=== PATIENT | male | born 1975 | race Caucasian/White ===

== ENCOUNTER 2016-10-01 12:32 | Inpatient (IN) | payer SELFPAY ==
--- NOTE | 2016-10-01 13:43 | EDPRACDOC ---
<Aj Soto - Last Filed: 10/01/16 18:09> - General Information Information Source: Patient Mode Of Arrival: Ambulance - History of Present Illness Onset: TUESDAY Pain Location: Reports: Epigastric Pain Context: Reports: Spontaneous Pain Severity: Moderate Pain Quality: Reports: Cramping Pain Radiation: Reports: No Radiation Adult Abdominal History: Denies: Abdominal Surgery Modifying Factors: improves with: Nothing Associated Signs & Symptoms: Reports: Nausea, Vomiting, Diarrhea, Melena Oral Intake: Decreased Urinary Output: Decreased <Jamel Delgado - Last Filed: 10/01/16 19:05> - General Information Chief Complaint: Abdominal Pain Stated Complaint: ABD PAIN-N/V Home Medications: Home Medications No Home Medications 07/06/15 Allergies/Adverse Reactions: Allergies Allergy/AdvReac Type Severity Reaction Status Date / Time No Known Allergies Allergy Verified 10/01/16 12:47 - History of Present Illness HPI: PATIENT HAS A HX OF HEAVY ETOH USE 5 YEARS AGO. (Aj Soto) C/o constant epigastric pain and N/V x 1 with black tarry diarrhea since tuesday. Pt gets weak, dizzy when standing up, appears pale. has not been eating or drinking much. Denies fever, cp, sob, change in urine. Med hx = none. Surgical hx = none. (Jamel Delgado) ED Past Medical History - History Reviewed Yes Nurses notes reviewed and agree except as marked - Patient Medical History Musculoskeletal History: Reports: Osteoarthritis Psychological History: Denies: Depression Additional Past Medical History: HNP Lower Back, CHRONIC PAIN, SUBSTANCE ABUSE Surgical History: Reports: Other (back) - Social Medical History Smoking Status: Heavy tobacco smoker (5 or more cigarettes/day or daily pipe/ cigar) <Jamel Delgado - Last Filed: 10/01/16 19:05> EDM Review of Systems - Review of Systems ROS Negative Except as Marked: Yes All systems reviewed and were negative except as marked Gastrointestinal: Diarrhea, Melena, Nausea, Pain, Vomiting Neurological: Dizziness (when standing), Weakness (when standing) <Jamel Delgado - Last Filed: 10/01/16 19:05> - GI Rectal Exam: Heme positive stool Stool: Tarry <Aj Soto - Last Filed: 10/01/16 18:09> - Physical Exam Constitutional: Alert Oriented to: Time, Person, Place - HEENT Head: Normal Eye Exam: negative: Conjunctival Injection, Scleral Icterus Oropharynx: negative: Drooling TMJ: Normal Nose: No Symptoms Reported Neck: Normal - Respiratory/Cardiovascular Respiratory: Normal - CTA Cardiovascular: Normal - GI Tenderness: Diffuse, Epigastric (more tender than rest of abdo) Andrew's Sign: Negative - Musculoskeletal Back: Normal Extremities: Normal - Integumentary Skin: Normal - Neurologic Mood Description: Normal Thought: Coherent Perception: Normal <Jamel Delgado - Last Filed: 10/01/16 19:05> - Physical Exam Last recorded Vital Signs: Last Vital Signs Temp 98.3 F 10/01/16 12:47 Pulse 90 10/01/16 18:26 Resp 20 10/01/16 18:26 BP 103/58 L 10/01/16 18:26 Pulse Ox 98 10/01/16 18:26 Oxygen Pulse Oxygen Saturation 98 O2 Device Room Air Oxygen Flow Rate Fraction of Inspired Oxygen ( FIO2) (Aj Soto) (Jamel Delgado) - Results 10/01/16 14:07 10/01/16 14:07 - EKG EKG #1 EKG Time: 15:53 -: Yes EKG interpreted by me Rate: bpm: 99 [place]: RAD Block: None Hypertrophy: None ST: Normal <Aj Soto - Last Filed: 10/01/16 18:09> - Results 10/01/16 14:07 10/01/16 14:07 - EKG EKG #1 Comparison: 02/09/12 (Sinus arrhythmia otherwise similar) - Diagnostic Imaging Chest Image interpreted by: Radiologist Abdomen Image interpreted by: Radiologist <Jamel Delgado - Last Filed: 10/01/16 19:05> - Results WBC 8.0 xk/uL (3.8-10.8) 10/01/16 14:07 RBC 3.10 xM/uL (4.70-6.10) L 10/01/16 14:07 Hgb 9.8 g/dL (14.0-18.0) L 10/01/16 14:07 Hct 28.4 % (42-52) L 10/01/16 14:07 MCV 92 fL (80-94) 10/01/16 14:07 MCH 31.7 pg (27-32) 10/01/16 14:07 MCHC 34.6 g/dl (33-36) 10/01/16 14:07 RDW 12.7 % (11.5-14.5) 10/01/16 14:07 Plt Count 184 xk/uL (130-400) 10/01/16 14:07 MPV 8.0 fL (7.4-10.4) 10/01/16 14:07 Neut % (Auto) 62.9 % (45-76) 10/01/16 14:07 Lymph % (Auto) 28.2 % (17-44) 10/01/16 14:07 Stearns % (Auto) 8.2 % (3-10) 10/01/16 14:07 Eos % (Auto) 0.3 % (0-5) 10/01/16 14:07 Baso % (Auto) 0.4 % (0-2) 10/01/16 14:07 Absolute Neuts (auto) 4.96 xk/uL (1.7-8.2) 10/01/16 14:07 Absolute Lymphs (auto) 2.24 xk/uL (0.65-4.75) 10/01/16 14:07 PT 12.0 SEC (9.2-11.2) H 10/01/16 14:07 INR 1.2 10/01/16 14:07 APTT 25.5 SEC (22-35) 10/01/16 14:07 Sodium 135 mEq/L (137-146) L 10/01/16 14:07 Potassium 4.5 mEq/L (3.5-5.1) 10/01/16 14:07 Chloride 105 mEq/L (98-107) 10/01/16 14:07 Carbon Dioxide 25 mMOL/L (22-33) 10/01/16 14:07 Anion Gap 10 mEq/L (8-16) 10/01/16 14:07 BUN 28 MG/DL (9-20) H 10/01/16 14:07 Creatinine 0.70 MG/DL (0.66-1.25) 10/01/16 14:07 Estimated GFR (MDRD) > 60 mL/min (>=60) 10/01/16 14:07 Glucose 103 MG/DL (70-99) H 10/01/16 14:07 Calculated Osmolality 266 MOs/Kg (270-290) L 10/01/16 14:07 Calcium 7.8 MG/DL (8.4-10.2) L 10/01/16 14:07 Corrected Calcium 8.9 MG/DL (8.4-10.2) 10/01/16 14:07 Total Bilirubin 0.6 MG/DL (0.2-1.3) 10/01/16 14:07 AST 106 IU/L (17-59) H 10/01/16 14:07 ALT 214 IU/L (21-72) H 10/01/16 14:07 Alkaline Phosphatase 46 IU/L (38-126) 10/01/16 14:07 Troponin I < 0.01 ng/mL (<.04) 10/01/16 17:30 Total Protein 5.5 G/DL (6.3-8.2) L 10/01/16 14:07 Albumin 2.9 G/DL (3.5-5.0) L 10/01/16 14:07 Lipase 39 U/L (23-300) 10/01/16 14:07 Urine Color Yellow 10/01/16 16:40 Urine Clarity Clear 10/01/16 16:40 Urine pH 6.0 (5.0-8.0) 10/01/16 16:40 Ur Specific [place] 1.015 (1.003-1.035) 10/01/16 16:40 Urine Protein Neg (NEG/TRACE) 10/01/16 16:40 Urine Glucose (UA) Neg (NEGATIVE) 10/01/16 16:40 Urine Ketones 1+ (NEGATIVE) H 10/01/16 16:40 Urine Occult Blood Neg (NEG/TRACE) 10/01/16 16:40 Urine Nitrite Neg (NEGATIVE) 10/01/16 16:40 Urine Bilirubin Neg (NEGATIVE) 10/01/16 16:40 Urine Urobilinogen <2.0 MG/DL (0-1) 10/01/16 16:40 Ur Leukocyte Esterase Neg (NEGATIVE) 10/01/16 16:40 Urine RBC 0-2 (0-2) 10/01/16 16:40 Urine WBC 0-2 (0-2) 10/01/16 16:40 Urine Bacteria Few (NEG/FEW) 10/01/16 16:40 Urine Mucus Occ (NEG/OCC) 10/01/16 16:40 Blood Type A POSITIVE 10/01/16 14:07 Antibody Screen Negative 10/01/16 14:07 Lab Results 10/01/16 10/01/16 10/01/16 17:30 16:40 14:07 WBC RBC Hgb Hct MCV MCH MCHC RDW Plt Count MPV Neut % (Auto) Lymph % (Auto) Stearns % (Auto) Eos % (Auto) Baso % (Auto) Absolute Neuts (auto) Absolute Lymphs (auto) PT 12.0 H INR 1.2 APTT 25.5 Sodium Potassium Chloride Carbon Dioxide Anion Gap BUN Creatinine Estimated GFR (MDRD) Glucose Calculated Osmolality Calcium Corrected Calcium Total Bilirubin AST ALT Alkaline Phosphatase Troponin I < 0.01 Total Protein Albumin Lipase Urine Color Yellow Urine Clarity Clear Urine pH 6.0 Ur Specific [place] 1.015 Urine Protein Neg Urine Glucose (UA) Neg Urine Ketones 1+ H Urine Occult Blood Neg Urine Nitrite Neg Urine Bilirubin Neg Urine Urobilinogen <2.0 Ur Leukocyte Esterase Neg Urine RBC 0-2 Urine WBC 0-2 Urine Bacteria Few Urine Mucus Occ Blood Type Antibody Screen 10/01/16 10/01/16 10/01/16 14:07 14:07 14:07 WBC RBC Hgb Hct MCV MCH MCHC RDW Plt Count MPV Neut % (Auto) Lymph % (Auto) Stearns % (Auto) Eos % (Auto) Baso % (Auto) Absolute Neuts (auto) Absolute Lymphs (auto) PT INR APTT Sodium Potassium Chloride Carbon Dioxide Anion Gap BUN Creatinine Estimated GFR (MDRD) Glucose Calculated Osmolality Calcium Corrected Calcium Total Bilirubin AST ALT Alkaline Phosphatase Troponin I < 0.01 Total Protein Albumin Lipase Cancelled Urine Color Urine Clarity Urine pH Ur Specific [place] Urine Protein Urine Glucose (UA) Urine Ketones Urine Occult Blood Urine Nitrite Urine Bilirubin Urine Urobilinogen Ur Leukocyte Esterase Urine RBC Urine WBC Urine Bacteria Urine Mucus Blood Type A POSITIVE Antibody Screen Negative 10/01/16 10/01/16 14:07 14:07 WBC 8.0 RBC 3.10 L Hgb 9.8 L Hct 28.4 L MCV 92 MCH 31.7 MCHC 34.6 RDW 12.7 Plt Count 184 MPV 8.0 Neut % (Auto) 62.9 Lymph % (Auto) 28.2 Stearns % (Auto) 8.2 Eos % (Auto) 0.3 Baso % (Auto) 0.4 Absolute Neuts (auto) 4.96 Absolute Lymphs (auto) 2.24 PT INR APTT Sodium 135 L Potassium 4.5 Chloride 105 Carbon Dioxide 25 Anion Gap 10 BUN 28 H Creatinine 0.70 Estimated GFR (MDRD) > 60 Glucose 103 H Calculated Osmolality 266 L Calcium 7.8 L Corrected Calcium 8.9 Total Bilirubin 0.6 AST 106 H ALT 214 H Alkaline Phosphatase 46 Troponin I Total Protein 5.5 L Albumin 2.9 L Lipase 39 Urine Color Urine Clarity Urine pH Ur Specific [place] Urine Protein Urine Glucose (UA) Urine Ketones Urine Occult Blood Urine Nitrite Urine Bilirubin Urine Urobilinogen Ur Leukocyte Esterase Urine RBC Urine WBC Urine Bacteria Urine Mucus Blood Type Antibody Screen (Soto,Aj) - Diagnostic Imaging Chest 10/01/16 16:01 EXAM: PORTABLE CHEST 1 VIEW COMPARISON: November 02, 2006. FINDINGS: There is no edema or consolidation. The heart size and pulmonary vascularity are normal. No adenopathy. No bone lesions. IMPRESSION: No edema or consolidation. Electronically Signed By: Gary Das III, M.D. On: 10/01/2016 14:37 (Jamel Delgado) Abdomen 10/01/16 17:14 EXAM: CT ABDOMEN AND PELVIS WITH CONTRAST TECHNIQUE: Multidetector CT imaging of the abdomen and pelvis was performed using the standard protocol following bolus administration of intravenous contrast. Sagittal and coronal MPR images reconstructed from axial data set. CONTRAST: Dilute oral contrast. 100 cc Isovue 370 IV. COMPARISON: 05/08/2014 FINDINGS: Lung bases clear. Distended gallbladder with 2 tiny dependent calculi. Liver, spleen, pancreas, kidneys, and adrenal glands normal. Single borderline enlarged mesenteric lymph node RIGHT upper pelvis 10 mm short axis image 56. Normal appendix located in lateral mid RIGHT pelvis image 65. Ascending colon is incompletely distended making it impossible to exclude wall thickening. Minimally prominent pylorus without surrounding infiltrative changes. Stomach and bowel loops otherwise grossly unremarkable. No definite mass, additional adenopathy, free air, free fluid, hernia, or inflammatory process. Degenerative disc disease changes L5-S1. IMPRESSION: Cannot exclude wall thickening at the ascending colon though this could be an artifact from underdistention. Cholelithiasis. Single borderline enlarged mesenteric lymph node 10 mm short axis RIGHT mid abdomen. Minimally prominent pylorus, nonspecific, without surrounding infiltrative state changes to suggest ulcer disease. Electronically Signed By: Vaibhav Crawley M.D. On: 10/01/2016 16:56 (Jamel Delgado) - Departure Yes I personally saw and evaluated the patient. Disposition: Admit IP To This Hospital Education/Counseling Given To: Patient Education/Counseling Given Regarding: Diagnosis, Treatment, Prognosis Decision to Admit Time: 18:02 Decision to admit date: 10/01/16 Decision to admit: from ED - Physician Consulted GI Time Called: 18:02 Provider Called: Ignacio Mulligan Time Base Wad Operator Adjuster Returned Call: 18:02 (NEEDS ADMISSION) Hospitalist Time Called: 18:03 Provider Called: Marcus Watson Time Base Wad Operator Adjuster Returned Call: 18:03 <Aj Soto - Last Filed: 10/01/16 18:09> <Jamel Delgado - Last Filed: 10/01/16 19:05> - Departure Condition: Fair Final Diagnosis: Acute upper GI bleed, Acute blood loss anemia, Weakness, Alcoholic liver disease Referrals: None,No Provider [Primary Care Provider] - One Week Prescriptions: No Action No Home Medications 0 NA DIR #0 info
[2016-10-01] MEDS ORDERED: ONDANSETRON HCL 4 MG/2 ML VIAL IV ONE ×2 (13:56→16:12)
[2016-10-01] MEDS ORDERED: MORPHINE 4 MG/ML INJECTION IV ONE ×2 (13:56→16:12)
[2016-10-01] MEDS ORDERED: NS 1,000 ML IV ONE (13:56)
[2016-10-01] MEDS ORDERED: DIATRIZOATE MEGLMINE/SODIUM 30 ML BOTTLE PO ONE (14:19)
[2016-10-01 14:20] LABS: AUTOMATED BASOPHIL 0.4 % (0-2); AUTOMATED EOSINOPHIL 0.3 % (0-5); AUTOMATED LYMPH 28.2 % (17-44); AUTOMATED MONOCYTE 8.2 % (3-10); AUTOMATED NEUTROPHIL 62.9 % (45-76)
[2016-10-01] MEDS ORDERED: PANTOPRAZOLE 40 MG VIAL IV ONE ×2 (14:22→18:09)
[2016-10-01 14:30] LABS: BLOOD UREA NITROGEN 28 MG/DL (9-20); CALC CORRECTED 8.9 MG/DL (8.4-10.2); CALCIUM 7.8 MG/DL (8.4-10.2); CALCULATED OSMOLALITY 266 MOs/Kg (270-290); CHLORIDE 105 mEq/L (98-107); GLUCOSE 103 MG/DL (70-99); SODIUM LEVEL 135 mEq/L (137-146); TOTAL PROTEIN 5.5 G/DL (6.3-8.2)
[2016-10-01 14:35] LABS: PARTIAL THROMB. TIME 25.5 SEC (22-35); PT-INR 1.2
--- NOTE | 2016-10-01 14:40 | DIRPT ---
CLINICAL DATA: Epigastric pain which nausea and vomiting; dizziness. EXAM: PORTABLE CHEST 1 VIEW COMPARISON: November 02, 2006. FINDINGS: There is no edema or consolidation. The heart size and pulmonary vascularity are normal. No adenopathy. No bone lesions. IMPRESSION: No edema or consolidation. Electronically Signed By: Gary Das III, M.D. On: 10/01/2016 14:37
[2016-10-01] MEDS ORDERED: Pharmacy Review for Metformin - IV Contrast Given SCH ×3 (15:00)
[2016-10-01 16:46] LABS: LEUKOCYTES/URINE NEG (NEGATIVE); NITRITE/URINE NEG (NEGATIVE); RBC/URINE 0-2 (0-2); URINE OCCULT BLOOD NEG (NEG/TRACE); WBC/URINE 0-2 (0-2)
--- NOTE | 2016-10-01 16:59 | DIRPT ---
CLINICAL DATA: Melena, black tarry stools, abdominal pain, nausea, vomiting and diarrhea for 3 days EXAM: CT ABDOMEN AND PELVIS WITH CONTRAST TECHNIQUE: Multidetector CT imaging of the abdomen and pelvis was performed using the standard protocol following bolus administration of intravenous contrast. Sagittal and coronal MPR images reconstructed from axial data set. CONTRAST: Dilute oral contrast. 100 cc Isovue 370 IV. COMPARISON: 05/08/2014 FINDINGS: Lung bases clear. Distended gallbladder with 2 tiny dependent calculi. Liver, spleen, pancreas, kidneys, and adrenal glands normal. Single borderline enlarged mesenteric lymph node RIGHT upper pelvis 10 mm short axis image 56. Normal appendix located in lateral mid RIGHT pelvis image 65. Ascending colon is incompletely distended making it impossible to exclude wall thickening. Minimally prominent pylorus without surrounding infiltrative changes. Stomach and bowel loops otherwise grossly unremarkable. No definite mass, additional adenopathy, free air, free fluid, hernia, or inflammatory process. Degenerative disc disease changes L5-S1. IMPRESSION: Cannot exclude wall thickening at the ascending colon though this could be an artifact from underdistention. Cholelithiasis. Single borderline enlarged mesenteric lymph node 10 mm short axis RIGHT mid abdomen. Minimally prominent pylorus, nonspecific, without surrounding infiltrative state changes to suggest ulcer disease. Electronically Signed By: Vaibhav Crawley M.D. On: 10/01/2016 16:56
[2016-10-01] MEDS ORDERED: PANTOPRAZOLE SODIUM 40 MG in NS 100 ML IV SCH (18:09)
[2016-10-01] MEDS ORDERED: NICOTINE 21 MG PATCH TOP ONE (18:14)
--- NOTE | 2016-10-01 18:34 | PCM.CONSGI ---
Consult Date: 10/01/16 Consult Requesting Physician: Marcus Watson Consult Reason: GI Bleed - History of Present Illness The patient is admitted today with GI bleeding. He indicates that for three days he has been passing black, tarry stools. In addition, he has had generalized abdominal pain that is present throughout the day and wakes him at night. The pain is steady, aching and persistent. There has been dizziness, weakness, and some nausea and vomiting. He may have vomited a slight amount of bright red blood, but it doesn't sound like he really looked at it. He has never had ulcers before but does uses NSAIDs on a regular basis, several times a week. Previously, he was a much heavier user of NSAIDs. He is a former heavy drinker, but had not had any alcohol in several years. This is confirmed by his fiancee. There is no history of bowel irregularities, heartburn, or dysphagia. There is no previous history of liver disorder. The patient report a 40 lb weight loss since April of 2016. His eating has been erratic but he indicates he has always eaten that way. - Past Medical History Cardiac History: Denies: Coronary Artery Disease, Hypertension Respiratory History: Reports: No Significant History Musculoskeletal History: Reports: Osteoarthritis Systemic History: Denies: Diabetes - Surgical History Past Surgical History: Reports: No Significant History - Allergies Allergies No Known Allergies Allergy (Verified 10/01/16 12:47) - Medications Home Medications No Home Medications 07/06/15 - Social History Smoking Status: Heavy tobacco smoker (5 or more cigarettes/day or daily pipe/ cigar) Social History: Reports: Alcohol Use - Review of Systems Constitutional: Fatigue, Loss of Appetite, Weakness, Weight loss. negative: Chills, Fever Eyes: No Symptoms Reported Ears: No Symptoms Reported Throat: No Symptoms Reported Nose: No Symptoms Reported Mouth: No Symptoms Reported Respiratory: negative: Cough, Shortness of Breath, Wheezing Cardiovascular: Syncope (Near-syncope). negative: Chest Pain, Edema, Palpitations Gastrointestinal: Nausea, Vomiting, Abdominal Pain, Melena. negative: Dysphasia , Heartburn Genitourinary: negative: Dysuria, Hematuria Neurological: negative: Headache, Seizure Musculoskeletal: Chronic low back pain, Arthritis Integumentary: negative: Rash, Ulcers Allergic/Immunologic: No Symptoms Reported Hematologic: negative: Anemia, Past Transfusions Endocrine: No Symptoms Reported - Exam Vital Signs: Temperature: 98.3 F (10/01/16 12:47) HR: 90 (10/01/16 18:26) RR: 20 (10/01/16 18:26) BP: 103/58 (10/01/16 18:26) Pulse Ox: 98 (10/01/16 18:26) General: Alert, Oriented x3, Cooperative, Moderate distress (due to abdominal pain) HEENT: PERRLA. negative: Icteric Sclera, Pallor Respiratory: Normal - CTA. negative: Rales, Rhonchi, Wheezes Cardiovascular: Regular rate, Normal S1, Normal S2, No murmurs Gastrointestinal: Soft, Bowel Sounds, Tender (mild, diffuse, without guarding or rebound). negative: Hepatosplenomegaly Extremities: Normal pulses. negative: Swelling, Edema Skin: Warm,Dry and Intact, No rashes Neurological: Normal speech, Strength at 5/5 X4 ext, Cranial nerves 3-12 NL Psych/Mental Status: Appropriate, Normal Affect, Cooperative - Labs Result Diagrams: 10/01/16 14:07 10/01/16 14:[address] SCAN Distended gallbladder with 2 tiny dependent calculi. Liver, spleen, pancreas, kidneys, and adrenal glands normal.. Ascending colon is incompletely distended making it impossible to exclude wall thickening. Laboratory Tests 10/01/16 10/01/16 10/01/16 14:07 14:07 14:07 WBC 8.0 Hgb 9.8 L MCV 92 Plt Count 184 PT 12.0 H INR 1.2 BUN 28 H Creatinine 0.70 Total Bilirubin 0.6 AST 106 H ALT 214 H Alkaline Phosphatase 46 - Assessment and Plan (1) Melena Acute K92.1 - MELENA Comment: Possibility includes acute gastritis with hemorrhage, acute peptic ulcer with hemorrhage, or Brigid Moura tear. Less likely is variceal hemorrhage or lower GI bleeding (i.e., diverticular). (2) Anemia, normocytic normochromic Acute D64.9 - ANEMIA, UNSPECIFIED Comment: Most likely is post-hemorrhagic but other factors need to be considered. (3) Weight loss Acute R63.4 - ABNORMAL WEIGHT LOSS Comment: This is significant without obvious etiology. In addition to the GI symptoms and the elevated LFTs. this type of weight loss would be common in a patient with significant alcohol use. (4) Elevated transaminase level Acute R74.0 - NONSPEC ELEV OF LEVELS OF TRANSAMNS & LACTIC ACID DEHYDRGNSE Comment: The elevations could be related to recent significant alcohol use. Viral hepatitis, especially B N/C, need to be checked for. The CT scan for the liver did not show any evidence of cirrhosis, although the low albumin is somewhat worrisome for the possibility that diagnosis. (5) Cholelithiases Acute K80.20 - CALCULUS OF GALLBLADDER W/O CHOLECYSTITIS W/O OBSTRUCTION C C C C C B Comment: It is possible that the gallstones are responsible for the abdominal pain and the bleeding is secondary, perhaps due to a Brigid Moura tear. If the EGD does not show a cause for the abdominal pain, a biliary scan may be appropriate. Recommendations: 1. Will perform upper GI endoscopy in the morning 2. Acute hepatitis profile Medical decision making: Moderate New problem with work-up Endoscopy without significant risk factors CPT: 45918
--- NOTE | 2016-10-01 19:14 | HISTPHYS ---
- Chief Complaint ABDOMINAL pain - History of Present Illness PRIMARY CARE PROVIDER: None HPI: The patient is a 41 yo man who presents with abdominal pain and vomiting. The patient reports being dizzy, then started back to work; dizzy starting Tuesday. Drinking jeni all day. Vomiting frequently starting Tuesday. Has been vomiting frequently. Tuesday started having black stool. Got up morning and he fell. Feels very weak all over. Slept in bed almost all the time. Constant abdominal pain. Onset: Duration: intermittent. Location: generalized but worst areas are centrally in epigastric and above the periumbilical region. Also on right side at mid abdomen. Radiation: none. Character: 8/10. Sharp. Alleviated by: Nothing. Exacerbated by : Standing. Associated Symptoms: Small amount of blood in vomiting. Mostly water eventually in vomit because he was not eating anything. Decreased PO intake; nothing to eat since Tuesday. Has had chronic constipation; has gone 2 weeks at a time without having a bowel movement. Currently has diarrhea and black stool. No history of recent bright red blood per rectum. Nausea and vomiting. Dizziness. Mild shortness of breath. No Fever, chills. Diaphoresis but was cold to touch, 2 days ago. Pale. Per report 40 lb weight loss since April 2016. Reports he drinks a lot of tea. He states he has a "Head hodge": frequent; room starts spinning; has had them before but getting worse. Treatments: none at home. PMH: GERD Hemorrhoids Chronic constipation Chronic back pain. Left shoulder pain. - Medical History GI/ History: Reports: Gastroesophageal Reflux (also chronic constipation, hemorrhoids.) Musculoskeletal History: Reports: Osteoarthritis (and chronic back pain) Psychological History: Reports: Alcoholism PMH: GERD Hemorrhoids Chronic constipation Chronic back pain. Left shoulder pain. Alcoholism in past, severe, but quit years ago. History of IV drug use, minimal. Quit. History of substance abuse including Opana, Percocet, and Meth. Stopped using. - Surgical History Reports: Other (Back surgery 2006) - Medictions/Allergies Allergies No Known Allergies Allergy (Verified 10/01/16 12:47) Current Medication List: Reviewed Home Medications No Home Medications 07/06/15 - Family History Reports: Hypertension (PGM), Diabetes (Uncle. PGM: borderline.), Respiratory Disorders (Brother), Other (Mother: medical history unknown. Father: hemorrhoids. GM and brother: ulcer). Denies: Stroke, Cardiac Disorders - Social History Smoking Status: Heavy tobacco smoker (5 or more cigarettes/day or daily pipe/ cigar) (Smokes 1 ppd currently. Prior: smoked 3-4 ppd. Started 12 yo.) Social History: Reports: Alcohol Use. Denies: Substance Use Disorder Previously drank daily starting at age 21yo. Up to 1 case of beer per day. Stopped approx 2010. No alcohol since then. Stopped all drugs over 1 year ago. Minimal amount of heroin, did use needles. Opoid pills = Opana, percocet. Methamphetamines. Was in intermediate and rehab and quit then. Relapsed but then intermediate again. No pills in over 2 years. - Review of Systems GENERAL: No Fever, chills. Diaphoresis but was cold to touch, 2 days ago. Positive for fatigue/malaise. HEENT: No ear pain or discharge. No nasal discharge or bleeding. No throat pain or swelling. No eye pain or eye redness. RESPIRATORY: No cough, wheezing. Mild shortness of breath. CARDIOVASCULAR: No chest pain or palpitations. GI: No abdominal pain, nausea, vomiting, diarrhea, constipation, or bloody stool. NEUROLOGICAL: No headache or focal weakness. INTEGUMENT: no rashes, itching, or lesions. LYMPHATIC SYSTEM: no lymph node swelling or pain. MUSCULOSKELETAL: Otherwise, no new pain or joint swelling. Left shoulder pain. GENITOURINARY: No dysuria or hematuria. Urine is dark. ENDOCRINE: No polyuria but has recent polydipsia. HEME: No chronic anemia or easy bruising. - Physical Exam Vital Signs: Initial Vitals Temperature 98.3 F 10/01/16 12:47 Pulse Rate 99 10/01/16 12:47 Respiratory Rate 20 10/01/16 12:47 Blood Pressure 116/62 10/01/16 12:47 Pulse Oxygen Saturation 95 10/01/16 12:47 Vital Signs - 24 hr 10/01/16 10/01/16 10/01/16 12:47 14:22 14:23 Temperature 98.3 F Pulse Rate 99 81 80 Respiratory 20 Rate Blood Pressure 116/62 117/58 L 117/59 L Pulse Oxygen 95 Saturation 10/01/16 10/01/16 10/01/16 14:24 15:52 16:51 Temperature Pulse Rate 80 96 99 Respiratory 20 20 Rate Blood Pressure 112/58 L 101/58 L 111/57 L Pulse Oxygen 98 97 Saturation 10/01/16 18:26 Temperature Pulse Rate 90 Respiratory 20 Rate Blood Pressure 103/58 L Pulse Oxygen 98 Saturation Weight: 83.9 kg Height: 6 feet 2 inches BMI: 23.8 - Other Exam Other Exam Findings: GENERAL: Ill-appearing, well nourished, in acute distress. HEENT: Normocephalic, atraumatic; pupils equal and round. Nares patent, without discharge or bleeding. No oropharyngeal lesions or erythema. Mucous membranes are dry. NECK: is supple, no masses, trachea midline. RESPIRATORY: Clear to auscultation bilaterally. Chest wall movements are symmetric. No use of accessory muscles to breathe. No wheezing, rales, rhonchi. Decreased breath sounds bilaterally. CARDIOVASCULAR: Normal S1, S2. No murmurs, rubs, or gallops. PMI non-displaced. Carotids: no carotid bruits. No bradycardia or tachycardia. DP pulses 1-2+ bilaterally. GI: soft, non-distended, normal active bowel sounds. No hepatosplenomegaly. Tenderness, mild, in epigastric area. INTEGUMENT: Clean, dry, and intact. No rashes. No lesions. MUSCULOSKELETAL: Moving all extremities. No cyanosis. No clubbing. Edema: none bilaterally. NEUROLOGICAL: Cranial nerves 2-12 grossly intact. Motor 5/5 throughout. Reflexes : 2+ bilaterally. Babinski: toes downgoing bilaterally. Intact Finger to nose. Sensory grossly intact to light touch. Intact rapid alternating movements bilaterally. No pronator drift. PSYCHIATRIC: Fully oriented. Normal and appropriate affect. LYMPHATIC: No cervical lymphadenopathy. No supraclavicular lymphadenopathy. - Lab Results Laboratory Tests 10/01/16 10/01/16 10/01/16 14:07 14:07 14:07 WBC 8.0 RBC 3.10 L Hgb 9.8 L Hct 28.4 L MCV 92 MCH 31.7 MCHC 34.6 RDW 12.7 Plt Count 184 MPV 8.0 Neut % (Auto) 62.9 Lymph % (Auto) 28.2 [place] % (Auto) 8.2 Eos % (Auto) 0.3 Baso % (Auto) 0.4 Absolute Neuts (auto) 4.96 Absolute Lymphs (auto) 2.24 PT INR APTT Sodium 135 L Potassium 4.5 Chloride 105 Carbon Dioxide 25 Anion Gap 10 BUN 28 H Creatinine 0.70 Estimated GFR (MDRD) > 60 Glucose 103 H Calculated Osmolality 266 L Calcium 7.8 L Corrected Calcium 8.9 Total Bilirubin 0.6 AST 106 H ALT 214 H Alkaline Phosphatase 46 Troponin I Total Protein 5.5 L Albumin 2.9 L Lipase 39 Urine Color Urine Clarity Urine pH Ur Specific [place] Urine Protein Urine Glucose (UA) Urine Ketones Urine Occult Blood Urine Nitrite Urine Bilirubin Urine Urobilinogen Ur Leukocyte Esterase Urine RBC Urine WBC Urine Bacteria Urine Mucus Blood Type A POSITIVE Antibody Screen Negative 10/01/16 10/01/16 10/01/16 14:07 14:07 14:07 WBC RBC Hgb Hct MCV MCH MCHC RDW Plt Count MPV Neut % (Auto) Lymph % (Auto) [place] % (Auto) Eos % (Auto) Baso % (Auto) Absolute Neuts (auto) Absolute Lymphs (auto) PT 12.0 H INR 1.2 APTT 25.5 Sodium Potassium Chloride Carbon Dioxide Anion Gap BUN Creatinine Estimated GFR (MDRD) Glucose Calculated Osmolality Calcium Corrected Calcium Total Bilirubin AST ALT Alkaline Phosphatase Troponin I < 0.01 Total Protein Albumin Lipase Cancelled Urine Color Urine Clarity Urine pH Ur Specific [place] Urine Protein Urine Glucose (UA) Urine Ketones Urine Occult Blood Urine Nitrite Urine Bilirubin Urine Urobilinogen Ur Leukocyte Esterase Urine RBC Urine WBC Urine Bacteria Urine Mucus Blood Type Antibody Screen 10/01/16 10/01/16 16:40 17:30 WBC RBC Hgb Hct MCV MCH MCHC RDW Plt Count MPV Neut % (Auto) Lymph % (Auto) [place] % (Auto) Eos % (Auto) Baso % (Auto) Absolute Neuts (auto) Absolute Lymphs (auto) PT INR APTT Sodium Potassium Chloride Carbon Dioxide Anion Gap BUN Creatinine Estimated GFR (MDRD) Glucose Calculated Osmolality Calcium Corrected Calcium Total Bilirubin AST ALT Alkaline Phosphatase Troponin I < 0.01 Total Protein Albumin Lipase Urine Color Yellow Urine Clarity Clear Urine pH 6.0 Ur Specific [place] 1.015 Urine Protein Neg Urine Glucose (UA) Neg Urine Ketones 1+ H Urine Occult Blood Neg Urine Nitrite Neg Urine Bilirubin Neg Urine Urobilinogen <2.0 Ur Leukocyte Esterase Neg Urine RBC 0-2 Urine WBC 0-2 Urine Bacteria Few Urine Mucus Occ Blood Type Antibody Screen LAB HISTORY 03/06/2012 12/26/2012 05/08/14 AST 19 881 H 25 ALT 16 1554 H 33 Albumin 4.1 3.9 4.2 Total Bili 0.5 0.6 0.5 Hemoglobin 14.6 14.5 14.4 - Diagnostic Findings EKG #1: 89 bpm. Normal sinus rhythm. Rightward axis. Minimal ST elevation in leads 2, V3, and V5. Reviewed EKG personally. EKG #2: 99 bpm. Normal sinus rhythm. Rightward axis. Minimal ST elevation in leads 3, aVF, V3, and V5. Reviewed EKG personally. Chest x-ray, viewed personally: EXAM: PORTABLE CHEST 1 VIEW COMPARISON: November 02, 2006. FINDINGS: There is no edema or consolidation. The heart size and pulmonary vascularity are normal. No adenopathy. No bone lesions. IMPRESSION: No edema or consolidation. CT abdomen and pelvis: EXAM: CT ABDOMEN AND PELVIS WITH CONTRAST TECHNIQUE: Multidetector CT imaging of the abdomen and pelvis was performed using the standard protocol following bolus administration of intravenous contrast. Sagittal and coronal MPR images reconstructed from axial data set. CONTRAST: Dilute oral contrast. 100 cc Isovue 370 IV. COMPARISON: 05/08/2014 FINDINGS: Lung bases clear. Distended gallbladder with 2 tiny dependent calculi. Liver, spleen, pancreas, kidneys, and adrenal glands normal. Single borderline enlarged mesenteric lymph node RIGHT upper pelvis 10 mm short axis image 56. Normal appendix located in lateral mid RIGHT pelvis image 65. Ascending colon is incompletely distended making it impossible to exclude wall thickening. Minimally prominent pylorus without surrounding infiltrative changes. Stomach and bowel loops otherwise grossly unremarkable. No definite mass, additional adenopathy, free air, free fluid, hernia, or inflammatory process. Degenerative disc disease changes L5-S1. IMPRESSION: Cannot exclude wall thickening at the ascending colon though this could be an artifact from underdistention. Cholelithiasis. Single borderline enlarged mesenteric lymph node 10 mm short axis RIGHT mid abdomen. Minimally prominent pylorus, nonspecific, without surrounding infiltrative state changes to suggest ulcer disease. - Assessment (1) Acute upper GI bleed K92.2 - GASTROINTESTINAL HEMORRHAGE, UNSPECIFIED Acute Present on Admission: Yes Patient is significantly symptomatic at this time. Hemoglobin level is low. Plan: Admit to hospital. Start IV pantoprazole q12 hours. Monitor H/H. May need EGD. Consult GI. Appreciate consult by Dr. Mulligan. If Hemoglobin is less than 7, then: Transfuse 2 units PRBC's. Pretreat with Tylenol 650 mg PO x 1 and Benadryl 25 mg IV x 1. Keep 1 unit on hand at all times. (2) Acute blood loss anemia D62 - ACUTE POSTHEMORRHAGIC ANEMIA Acute Present on Admission: Yes Patient is significantly symptomatic at this time. Hemoglobin level is low. Plan: Admit to hospital. Start IV pantoprazole q12 hours. Monitor H/H. May need EGD. Consult GI. Appreciate consult by Dr. Mulligan. If Hemoglobin is less than 7, then: Transfuse 2 units PRBC's. Pretreat with Tylenol 650 mg PO x 1 and Benadryl 25 mg IV x 1. Keep 1 unit on hand at all times. (3) Alcoholic liver disease K70.9 - ALCOHOLIC LIVER DISEASE, UNSPECIFIED Acute Present on Admission: Yes Patient has quit drinking years ago but had history of severe alcholism in past with up to a case of beer per day. Elevated LFTs thought to be due to alcholism. Is also at risk for Hepatitis C from IV drug use, which he has also quit. Plan: Monitor LFTs. Dr. Mulligan has ordered hepatitis labs. GI consult. (4) Elevated transaminase level R74.0 - NONSPEC ELEV OF LEVELS OF TRANSAMNS & LACTIC ACID DEHYDRGNSE Acute Present on Admission: Yes Elevated LFTs thought to be due to alcholism. Is also at risk for Hepatitis C from IV drug use, which he has also quit. Plan: Monitor LFTs. Dr. Mulligan has ordered hepatitis labs. GI consult. (5) Cholelithiases K80.20 - CALCULUS OF GALLBLADDER W/O CHOLECYSTITIS W/O OBSTRUCTION Acute Present on Admission: Yes Qualifiers: Cholelithiasis location: C Cholecystitis presence: C Cholangitis presence : C Cholecystitis acuity: C Cholangitis acuity: C Biliary obstruction: B Could have acute component but it is unclear. Plan: Continue GI workup. Further treatment depending on hospital course. (6) Epigastric pain R10.13 - EPIGASTRIC PAIN Acute Present on Admission: Yes Plan: PRN IV dilaudid. - Plan Regarding EKG abnormalities: ST elevations are minimal and are more likely to be early repolarization. Patient has no chest pain or pressure. Discussed case with Dr. Ross, appraiser real estate, who reviewed the EKGs personally. He stated that the EKGs were unlikely to represent an acute cardiac issue. He recommended that we obtain one further EKG tomorrow, but otherwise could continue his GI workup. Case Care Discussed with: Patient, Family, Nursing Staff Total Time: 70 min
[2016-10-01] MEDS: MORPHINE 2 MG/ML INJECTION IV PRN ×2 (20:11→22:28)
[2016-10-01 21:00] VITALS: BMI 20.6
[2016-10-01] MEDS ORDERED: PROMETHAZINE 25 MG/ML VIAL IV PRN (21:05)
[2016-10-01] MEDS ORDERED: Docusate Sodium 100 MG CAP PO PRN (21:05)
[2016-10-01] MEDS ORDERED: BENZONATATE 100 MG PERLES PO PRN (21:05)
[2016-10-01] MEDS ORDERED: GUAIFEN 100 MG-DEXTROMETH 10 MG PER 5 ML PO PRN (21:05)
[2016-10-01] MEDS ORDERED: BISACODYL 5 MG TAB PO PRN (21:05)
[2016-10-01] MEDS ORDERED: ACETAMINOPHEN 325 MG/TAB TABLET PO PRN (21:05)
[2016-10-01] MEDS ORDERED: ACETAMINOPHEN 325 MG SUPP PR PRN (21:05)
[2016-10-01] MEDS ORDERED: SIMETHICONE 80 MG TAB PO PRN (21:05)
[2016-10-01] MEDS ORDERED: ONDANSETRON HCL 4 MG/2 ML VIAL IV PRN (21:05)
[2016-10-01] MEDS ORDERED: SENNA CONCENTRATE TAB PO PRN (21:05)
[2016-10-01] MEDS: LR 1,000 ML IV SCH (21:15)
[2016-10-01] MEDS: NICOTINE 14 MG PATCH TOP SCH (21:16)
[2016-10-01] MEDS ORDERED: THIAMINE 100 MG TAB PO ONE (21:44)
[2016-10-01] MEDS ORDERED: VITAMINS,PRENATAL TABLET PO ONE (21:45)
[2016-10-01 22:00] LABS: % SATURATION 26.2 % (20-50)
[2016-10-01] MEDS ORDERED: Vaccine Screening Complete SCH (22:00)
[2016-10-01 22:08] LABS: FREE T3 2.97 pg/mL (2.77-5.27); FREE T4 0.85 ng/dL (0.78-2.19)
[2016-10-01 22:21] LABS: hTSH 1.72 uIU/mL (0.5-4.67)
[2016-10-01] MEDS: TEMAZEPAM 15 MG CAP PO PRN (22:32)
[2016-10-01 22:58] LABS: FOLATES 14.1 ng/mL (>2.76)
[2016-10-02] MEDS ORDERED: PANTOPRAZOLE 40 MG VIAL IV SCH (02:00)
[2016-10-02] MEDS: MORPHINE 2 MG/ML INJECTION IV PRN ×7 (03:22→23:48)
[2016-10-02] MEDS: LR 1,000 ML IV SCH ×2 (05:40→18:21)
[2016-10-02 08:12] LABS: MPV 7.9 fL (7.4-10.4)
[2016-10-02 08:39] LABS: BLOOD UREA NITROGEN 13 MG/DL (9-20); CALC CORRECTED 9.2 MG/DL (8.4-10.2); CALCIUM 7.6 MG/DL (8.4-10.2); CALCULATED OSMOLALITY 258 MOs/Kg (270-290); CHLORIDE 106 mEq/L (98-107); GLUCOSE 98 MG/DL (70-99); SODIUM LEVEL 134 mEq/L (137-146); TOTAL PROTEIN 4.7 G/DL (6.3-8.2); VLDL (calc.) 12.8 MG/DL (5-40)
--- NOTE | 2016-10-02 09:31 | DIRPT ---
CLINICAL DATA: 41-year-old male with acute abdominal pain for 1 day, elevated LFTs and vomiting. EXAM: ABDOMEN ULTRASOUND COMPLETE COMPARISON: 10/01/2016 CT FINDINGS: Gallbladder: A 6 mm echogenic focus within the gallbladder is noted with gallbladder sludge. There is no evidence of gallbladder wall thickening, pericholecystic fluid or sonographic Andrew's sign. Common bile duct: Diameter: 3.4 mm. There is no evidence of intrahepatic or extrahepatic biliary dilatation. Liver: No focal lesion identified. Within normal limits in parenchymal echogenicity. IVC: No abnormality visualized. Pancreas: Visualized portion unremarkable. Spleen: Size and appearance within normal limits. Right Kidney: Length: 10.0 cm. Echogenicity within normal limits. No mass or hydronephrosis visualized. Left Kidney: Length: 10.8 cm. Echogenicity within normal limits. No mass or hydronephrosis visualized. Abdominal aorta: No aneurysm visualized. Other findings: None. IMPRESSION: Gallbladder sludge and probable 6 mm gallstone. No evidence of acute cholecystitis or biliary dilatation. No other abnormalities. Electronically Signed By: Jonah Hurd M.D. On: 10/02/2016 09:29
[2016-10-02] MEDS ORDERED: IBUPROFEN INTRAVENOUS 400 MG in NS 100 ML IV ONE (10:00)
[2016-10-02] MEDS ORDERED: ACETAMINOPHEN 325 MG/TAB TABLET PO ONE (10:21)
[2016-10-02] MEDS ORDERED: DIPHENHYDRAMINE 50 MG/ML VIAL IV ONE (10:21)
[2016-10-02] MEDS ORDERED: FENTANYL 100 MCG/2 ML VIAL ONE ×2 (10:27)
[2016-10-02] MEDS ORDERED: MIDAZOLAM 5 MG/5 ML VIAL ONE (10:27)
--- NOTE | 2016-10-02 11:34 | PCM.GIPROG ---
Progress Note (GI) Chief Complaint: EGD showed an 8mm esophageal ulcer with a visible vessel. It was not actively bleeding and there was no blood in the stomach. - Physical Exam Vital Signs: Temperature: 97.8 F (10/02/16 11:07) HR: 92 (10/02/16 11:23) RR: 16 (10/02/16 11:23) BP: 114/59 (10/02/16 11:23) Pulse Ox: 100 (10/02/16 11:23) Result Diagrams: 10/02/16 10:00 10/02/16 07:44 - Impression and Plan (1) Melena Acute K92.1 - MELENA Comment: This is the most likely source for the recent GI bleeding, which appear stable at this point. However, I am not sure that this is causing the patient's abdominal pain. (2) Cholelithiases Acute K80.20 - CALCULUS OF GALLBLADDER W/O CHOLECYSTITIS W/O OBSTRUCTION Present on Admission: Yes C C C C C B Comment: This may be causing the abdominal pain, but I am not sure it would be you to hodge into surgery at this time. Plan: 1. Advance to regular diet 2. Biliary scan 3. Can discharge when Hbg is stable and bleeding is clearly stopped 4. Will need follow-up in my office after discharge. 5. Follow-up EGD in 6-8 weeks to verify healing of the ulcer Additional Notes: CPT: no charge
[2016-10-02] MEDS ORDERED: NS 1,000 ML IV ONE (11:40)
[2016-10-02] MEDS: VITAMINS,PRENATAL TABLET PO SCH (12:00)
[2016-10-02] MEDS: THIAMINE 100 MG TAB PO SCH (12:00)
--- NOTE | 2016-10-02 12:16 | PCM.GIPROG ---
Progress Note (GI) Chief Complaint: This is to complete assessment and plan from note earlier today. - Physical Exam Vital Signs: Temperature: 97.8 F (10/02/16 11:07) HR: 91 (10/02/16 11:50) RR: 16 (10/02/16 11:50) BP: 112/58 (10/02/16 11:50) Pulse Ox: 98 (10/02/16 11:50) Result Diagrams: 10/02/16 10:00 10/02/16 07:44 - Impression and Plan (1) Esophageal ulcer with bleeding Acute K22.11 - ULCER OF ESOPHAGUS WITH BLEEDING Plan: 1. Pantoprazole 40mg bid 2. Follow-up EGD in 6-8 weeks Additional Notes: CPT: no charge
--- NOTE | 2016-10-02 12:50 | HIMOP ---
DATE OF PROCEDURE: INPATIENT ROOM: 338. PROCEDURE: Esophagogastroduodenoscopy. INDICATION FOR PROCEDURE: The patient with GI bleeding. INSTRUMENT: Olympus video upper endoscope. SEDATION: A 5 milligrams of Versed, 50 micrograms of fentanyl intravenously; topical Cetacaine spray. DESCRIPTION OF PROCEDURE: After adequate intravenous sedation, endoscope was passed without difficulty in the esophagus. No esophageal varices were present. There was an 8 millimeter esophageal ulceration at the EG junction with a visible vessel. It was not actively bleeding. The stomach was entered and there was no blood in the stomach. The stomach was normal. The duodenal bulb and descending duodenum were normal. The endoscope withdrawn. The patient tolerated the procedure well. IMPRESSION: Esophageal ulcer with stigmata of recent hemorrhage. RECOMMENDATION: The patient should remain on high-dose proton pump inhibitors for the time being. Follow up will be needed in the office in about 2 weeks with a followup endoscopy to verify healing of the ulceration in 6-8 weeks. The patient should avoid all NSAIDs. [id number] MTDD
--- NOTE | 2016-10-02 13:03 | GENMEDPROG ---
Subjective Note: Patient seen this morning no new complaints. He underwent esophagogastroduodenoscopy after I saw him was found to have an ulcer of the esophagus with a visible blood vessel. Notes Reviewed: Yes Events from last night noted and discussed with Clinical Staff Current Medication List: Reviewed Currently: Reports: Alcohol Hx. Denies: Nausea and Vomiting, Abdominal Pain DVT Prophylaxis: Yes - Physical Examination Vital Signs and I&O: Last Vital Signs Temp 97.8 F 10/02/16 11:07 Pulse 91 10/02/16 11:50 Resp 16 10/02/16 11:50 BP 112/58 L 10/02/16 11:50 Pulse Ox 98 10/02/16 11:50 Oxygen Pulse Oxygen Saturation 98 O2 Device Room Air Oxygen Flow Rate 2 Fraction of Inspired Oxygen ( FIO2) Intake & Output 09/29/16 09/30/16 10/01/16 10/02/16 23:59 23:59 23:59 23:59 Intake Total 1280 400 Output Total 750 Balance 1280 -350 Patient's weight 72.983 kg General: Alert, Oriented x3, Cooperative, Moderate distress (due to abdominal pain) HEENT: Normal (Normocephalic, atraumatic;EOMI.Sclera white, Nares patent, without discharge or bleeding. No oropharyngeal lesions or erythema. Mucous membranes are dry.) Neck: Non-tender, Full range of motion, Normal Trachea alignment, Normal inspection (No cervical lymphadenopathy. No supraclavicular lymphadenopathy.), No Masses palpable, Supple Respiratory: Normal - CTA. negative: Rales, Rhonchi, Wheezes Cardiovascular: Regular rate and rhythm (No bradycardia or tachycardia), Normal S1, No Gallops,Rubs/Murmurs, Normal S2, Good Pedal Pulses (DP pulses 2+ bilaterally) GI: Normal bowel sounds (normal active sounds), Soft (non-distended), Non tender , No hepatospenomegaly, No masses Extremities/Musculoskeletal: Normal pulses. negative: Swelling, Edema Skin: Warm,Dry and Intact, No rashes Neurological: Strength at 5/5 X4 ext (Motor 5/5 throughout.), Normal tone, Cranial nerves 3-12 NL ( 2-12 grossly intact.) Psych/Mental Status: Appropriate, Normal Affect Lab/DI/Studies Reviewed: Laboratory Results - last 24 hr 10/01/16 10/01/1617 14:07 14:07 14:07 WBC 8.0 RBC 3.10 L Hgb 9.8 L Hct 28.4 L MCV 92 MCH 31.7 MCHC 34.6 RDW 12.7 Plt Count 184 MPV 8.0 Neut % (Auto) 62.9 Lymph % (Auto) 28.2 [place] % (Auto) 8.2 Eos % (Auto) 0.3 Baso % (Auto) 0.4 Absolute Neuts (auto) 4.96 Absolute Lymphs (auto) 2.24 PT INR APTT Sodium 135 L Potassium 4.5 Chloride 105 Carbon Dioxide 25 Anion Gap 10 BUN 28 H Creatinine 0.70 Estimated GFR (MDRD) > 60 Glucose 103 H Calculated Osmolality 266 L Calcium 7.8 L Corrected Calcium 8.9 Phosphorus Magnesium Iron TIBC % Saturation Ferritin Total Bilirubin 0.6 AST 106 H ALT 214 H Alkaline Phosphatase 46 Creatine Kinase Troponin I Total Protein 5.5 L Albumin 2.9 L Triglycerides Cholesterol LDL Cholesterol, Calc VLDL Cholesterol, Calc HDL Cholesterol Cholesterol/HDL Ratio Lipase 39 Vitamin B12 Serum Folate TSH Free T4 Free T3 Urine Color Urine Clarity Urine pH Ur Specific [place] Urine Protein Urine Glucose (UA) Urine Ketones Urine Occult Blood Urine Nitrite Urine Bilirubin Urine Urobilinogen Ur Leukocyte Esterase Urine RBC Urine WBC Urine Bacteria Urine Mucus Blood Type A POSITIVE Antibody Screen Negative Crossmatch See Detail 10/01/16 10/01/16 10/01/16 14:07 14:07 14:07 WBC RBC Hgb Hct MCV MCH MCHC RDW Plt Count MPV Neut % (Auto) Lymph % (Auto) [place] % (Auto) Eos % (Auto) Baso % (Auto) Absolute Neuts (auto) Absolute Lymphs (auto) PT 12.0 H INR 1.2 APTT 25.5 Sodium Potassium Chloride Carbon Dioxide Anion Gap BUN Creatinine Estimated GFR (MDRD) Glucose Calculated Osmolality Calcium Corrected Calcium Phosphorus Magnesium Iron TIBC % Saturation Ferritin Total Bilirubin AST ALT Alkaline Phosphatase Creatine Kinase Troponin I < 0.01 Total Protein Albumin Triglycerides Cholesterol LDL Cholesterol, Calc VLDL Cholesterol, Calc HDL Cholesterol Cholesterol/HDL Ratio Lipase Cancelled Vitamin B12 Serum Folate TSH Free T4 Free T3 Urine Color Urine Clarity Urine pH Ur Specific [place] Urine Protein Urine Glucose (UA) Urine Ketones Urine Occult Blood Urine Nitrite Urine Bilirubin Urine Urobilinogen Ur Leukocyte Esterase Urine RBC Urine WBC Urine Bacteria Urine Mucus Blood Type Antibody Screen Crossmatch 10/01/16 10/01/16 10/01/16 16:40 17:30 21:30 WBC RBC Hgb Hct MCV MCH MCHC RDW Plt Count MPV Neut % (Auto) Lymph % (Auto) [place] % (Auto) Eos % (Auto) Baso % (Auto) Absolute Neuts (auto) Absolute Lymphs (auto) PT INR APTT Sodium Potassium Chloride Carbon Dioxide Anion Gap BUN Creatinine Estimated GFR (MDRD) Glucose Calculated Osmolality Calcium Corrected Calcium Phosphorus Magnesium Iron TIBC % Saturation Ferritin Total Bilirubin AST ALT Alkaline Phosphatase Creatine Kinase Troponin I < 0.01 Total Protein Albumin Triglycerides Cholesterol LDL Cholesterol, Calc VLDL Cholesterol, Calc HDL Cholesterol Cholesterol/HDL Ratio Lipase Vitamin B12 Serum Folate TSH 1.72 Free T4 0.85 Free T3 2.97 Urine Color Yellow Urine Clarity Clear Urine pH 6.0 Ur Specific [place] 1.015 Urine Protein Neg Urine Glucose (UA) Neg Urine Ketones 1+ H Urine Occult Blood Neg Urine Nitrite Neg Urine Bilirubin Neg Urine Urobilinogen <2.0 Ur Leukocyte Esterase Neg Urine RBC 0-2 Urine WBC 0-2 Urine Bacteria Few Urine Mucus Occ Blood Type Antibody Screen Crossmatch 10/01/16 10/01/16 10/02/16 21:30 21:30 07:44 WBC RBC Hgb Hct MCV MCH MCHC RDW Plt Count MPV Neut % (Auto) Lymph % (Auto) [place] % (Auto) Eos % (Auto) Baso % (Auto) Absolute Neuts (auto) Absolute Lymphs (auto) PT INR APTT Sodium 134 L Potassium 3.8 Chloride 106 Carbon Dioxide 27 Anion Gap 5 L BUN 13 Creatinine 0.60 L Estimated GFR (MDRD) > 60 Glucose 98 Calculated Osmolality 258 L Calcium 7.6 L Corrected Calcium 9.2 Phosphorus 2.6 Magnesium 1.90 Iron 81.0 TIBC 309 % Saturation 26.2 Ferritin 84.7 Total Bilirubin 0.5 AST 79 H ALT 164 H Alkaline Phosphatase 41 Creatine Kinase 74 Troponin I Total Protein 4.7 L Albumin 2.4 L Triglycerides 64 Cholesterol < 50 L LDL Cholesterol, Calc Not Reportable VLDL Cholesterol, Calc 12.8 HDL Cholesterol 17.0 L Cholesterol/HDL Ratio Not Reportable Lipase Vitamin B12 638 Serum Folate 14.10 TSH Free T4 Free T3 Urine Color Urine Clarity Urine pH Ur Specific [place] Urine Protein Urine Glucose (UA) Urine Ketones Urine Occult Blood Urine Nitrite Urine Bilirubin Urine Urobilinogen Ur Leukocyte Esterase Urine RBC Urine WBC Urine Bacteria Urine Mucus Blood Type Antibody Screen Crossmatch 10/02/16 10/02/16 07:44 10:00 WBC 4.5 RBC 2.48 L Hgb 7.8 L D 7.9 L Hct 22.9 L 23.4 L MCV 93 MCH 31.5 MCHC 34.0 RDW 13.0 Plt Count 148 MPV 7.9 Neut % (Auto) Lymph % (Auto) [place] % (Auto) Eos % (Auto) Baso % (Auto) Absolute Neuts (auto) Absolute Lymphs (auto) PT INR APTT Sodium Potassium Chloride Carbon Dioxide Anion Gap BUN Creatinine Estimated GFR (MDRD) Glucose Calculated Osmolality Calcium Corrected Calcium Phosphorus Magnesium Iron TIBC % Saturation Ferritin Total Bilirubin AST ALT Alkaline Phosphatase Creatine Kinase Troponin I Total Protein Albumin Triglycerides Cholesterol LDL Cholesterol, Calc VLDL Cholesterol, Calc HDL Cholesterol Cholesterol/HDL Ratio Lipase Vitamin B12 Serum Folate TSH Free T4 Free T3 Urine Color Urine Clarity Urine pH Ur Specific [place] Urine Protein Urine Glucose (UA) Urine Ketones Urine Occult Blood Urine Nitrite Urine Bilirubin Urine Urobilinogen Ur Leukocyte Esterase Urine RBC Urine WBC Urine Bacteria Urine Mucus Blood Type Antibody Screen Crossmatch - Assessment (1) Esophageal ulcer with bleeding Acute K22.11 - ULCER OF ESOPHAGUS WITH BLEEDING Comment/Plan: Noted on EGD today. Monitor H&H is stable plan for discharge in a.m.. (2) Acute upper GI bleed Acute K92.2 - GASTROINTESTINAL HEMORRHAGE, UNSPECIFIED Comment/Plan: Continue to monitor hemoglobin. (3) Acute blood loss anemia Acute D62 - ACUTE POSTHEMORRHAGIC ANEMIA Comment/Plan: Continue to monitor hemoglobin transfuse as necessary. (4) Alcoholic liver disease Acute K70.9 - ALCOHOLIC LIVER DISEASE, UNSPECIFIED Comment/Plan: Patient has quit drinking years ago but had history of severe alcholism in past with up to a case of beer per day. Elevated LFTs thought to be due to alcholism. Is also at risk for Hepatitis C from IV drug use, which he has also quit. Continue to monitor LFTs check hepatitis labs. (5) Elevated transaminase level Acute R74.0 - NONSPEC ELEV OF LEVELS OF TRANSAMNS & LACTIC ACID DEHYDRGNSE Comment/Plan: Elevated LFTs thought to be due to alcholism. Is also at risk for Hepatitis C from IV drug use, which he has also quit. Plan: Monitor LFTs. Dr. Mulligan has ordered hepatitis labs. GI consult. (6) Cholelithiases Acute K80.20 - CALCULUS OF GALLBLADDER W/O CHOLECYSTITIS W/O OBSTRUCTION Qualifiers: Cholelithiasis location: gallbladder Cholecystitis presence: without cholecystitis Cholangitis presence: C Cholecystitis acuity: C Cholangitis acuity: C Biliary obstruction: without biliary obstruction Qualified Code(s) : K80.20 - Calculus of gallbladder without cholecystitis without obstruction Comment/Plan: This may be causing the abdominal pain, but I am not sure it would be you to hodge into surgery at this time. (7) Epigastric pain Acute R10.13 - EPIGASTRIC PAIN Comment/Plan: Plan: PRN IV dilaudid. - Plan Continue supportive care hemoglobin stable discharge in a.m.. Disposition Plan: Likely home Case Care Discussed with: Patient, Nursing Staff Education/Counseling Given To: Patient Education/Counseling Given Regarding: Diagnosis, Treatment, Prognosis, Disposition Plan Total Time: 45 minutes
[2016-10-02] MEDS ORDERED: FUROSEMIDE 20 MG/2 ML VIAL IV ONE (13:21)
[2016-10-02] MEDS: PANTOPRAZOLE 40 MG TAB PO SCH (16:59)
[2016-10-02] MEDS: FUROSEMIDE 20 MG/2 ML VIAL IV SCH (18:27)
[2016-10-02] MEDS: NICOTINE 14 MG PATCH TOP SCH (20:41)
[2016-10-02] MEDS: TEMAZEPAM 15 MG CAP PO PRN (21:37)
[2016-10-03] MEDS: FUROSEMIDE 20 MG/2 ML VIAL IV SCH (00:19)
[2016-10-03 02:40] LABS: AUTOMATED BASOPHIL 0.8 % (0-2); AUTOMATED EOSINOPHIL 5.1 % (0-5); AUTOMATED LYMPH 38.6 % (17-44); AUTOMATED MONOCYTE 9.8 % (3-10); AUTOMATED NEUTROPHIL 45.7 % (45-76); MPV 8.4 fL (7.4-10.4)
[2016-10-03] MEDS: PANTOPRAZOLE 40 MG TAB PO SCH (05:43)
[2016-10-03] MEDS: LR 1,000 ML IV SCH (05:43)
[2016-10-03] MEDS ORDERED: MEBROFENIN 5 MCI V IV ONE (08:57)
[2016-10-03 09:40] LABS: HEPATITIS A AB IgG/IgM Positive (Negative)
--- NOTE | 2016-10-03 10:56 | DIRPT ---
CLINICAL DATA: Cholelithiasis EXAM: NUCLEAR MEDICINE HEPATOBILIARY IMAGING WITH GALLBLADDER EF TECHNIQUE: Sequential images of the abdomen were obtained out to 60 minutes following intravenous administration of radiopharmaceutical. After slow intravenous infusion of 1.36 micrograms Cholecystokinin, gallbladder ejection fraction was determined. RADIOPHARMACEUTICALS: 5.2 mCi Tc-99m Choletec IV COMPARISON: Ultrasound from 10/02/2016 FINDINGS: There is adequate uptake throughout the liver immediately following injection. The gallbladder is visualized at 4 minutes. Small bowel activity is seen at 27 minutes.. Following CCK injection the gallbladder ejection fraction is calculated at 84% IMPRESSION: Normal uptake and excretion of biliary tracer. Normal gallbladder ejection fraction at 84%. Electronically Signed By: Vaibhav Mesa M.D. On: 10/03/2016 10:53
[2016-10-03] MEDS: VITAMINS,PRENATAL TABLET PO SCH (11:07)
[2016-10-03] MEDS: THIAMINE 100 MG TAB PO SCH (11:07)
--- NOTE | 2016-10-03 11:07 | PCM.GIPROG ---
Progress Note (GI) Chief Complaint: Patient feels well and wants to go home. He is having no further abdominal pain nausea vomiting or visible rectal bleeding. He did receive 2 units of blood. Viral hepatitis panel is still pending. Biliary scan shows a normal ejection fraction. - Physical Exam Vital Signs: Temperature: 97.8 F (10/03/16 05:39) HR: 90 (10/03/16 05:39) RR: 18 (10/03/16 05:39) BP: 131/62 (10/03/16 05:39) Pulse Ox: 98 (10/03/16 05:39) Result Diagrams: 10/03/16 01:46 10/02/16 07:44 Additional Lab/DI Findings: BILIARY SCAN IMPRESSION: Normal uptake and excretion of biliary tracer. Normal gallbladder ejection fraction at 84%. - Impression and Plan (1) Esophageal ulcer with bleeding Acute K22.11 - ULCER OF ESOPHAGUS WITH BLEEDING Comment: There has been no further bleeding. Vital signs are stable. Hemoglobin stable after 2 units of blood. (2) Cholelithiases Acute K80.20 - CALCULUS OF GALLBLADDER W/O CHOLECYSTITIS W/O OBSTRUCTION Present on Admission: Yes gallbladder without cholecystitis C C C without biliary obstruction K80.20 - Calculus of gallbladder without cholecystitis without obstruction Comment: Since the biliary scan shows excellent ejection fraction, and the patient is having no further pain, I believe we can follow this patient up as an outpatient. Plan: 1. Okay to discharge home 2. Discharge on pantoprazole 40 milligrams twice daily 3. Discharged on soft diet for 72 hours, then can resume a normal diet 4. 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 Follow with me in the office on October 12 with hemoglobin drawn on October 11 Additional Notes: CPT: 14165
--- NOTE | 2016-10-03 11:08 | PCM.DCS92 ---
- Final/Secondary Discharge Diagnosis (1) Esophageal ulcer with bleeding Acute K22.11 - ULCER OF ESOPHAGUS WITH BLEEDING Comment: There has been no further bleeding. Vital signs are stable. Hemoglobin stable after 2 units of blood. (2) Acute upper GI bleed Acute K92.2 - GASTROINTESTINAL HEMORRHAGE, UNSPECIFIED Present on Admission: Yes Comment: Continue to monitor hemoglobin. (3) Acute blood loss anemia Acute D62 - ACUTE POSTHEMORRHAGIC ANEMIA Present on Admission: Yes Comment: Continue to monitor hemoglobin transfuse as necessary. (4) Alcoholic liver disease Acute K70.9 - ALCOHOLIC LIVER DISEASE, UNSPECIFIED Present on Admission: Yes Comment: Patient has quit drinking years ago but had history of severe alcholism in past with up to a case of beer per day. Elevated LFTs thought to be due to alcholism. Is also at risk for Hepatitis C from IV drug use, which he has also quit. Continue to monitor LFTs check hepatitis labs. (5) Elevated transaminase level Acute R74.0 - NONSPEC ELEV OF LEVELS OF TRANSAMNS & LACTIC ACID DEHYDRGNSE Present on Admission: Yes Comment: Elevated LFTs thought to be due to alcholism. Is also at risk for Hepatitis C from IV drug use, which he has also quit. Plan: Monitor LFTs. Dr. Mulligan has ordered hepatitis labs. GI consult. (6) Cholelithiases Acute K80.20 - CALCULUS OF GALLBLADDER W/O CHOLECYSTITIS W/O OBSTRUCTION Present on Admission: Yes K80.20 - Calculus of gallbladder without cholecystitis without obstruction Comment: Since the biliary scan shows excellent ejection fraction, and the patient is having no further pain, I believe we can follow this patient up as an outpatient. (7) Epigastric pain Acute R10.13 - EPIGASTRIC PAIN Present on Admission: Yes Comment: Plan: PRN IV dilaudid. Discharge Disposition: Home Discharge Condition: Fair Fuctional Discharge Status: Independent Physician Follow up/Referrals: Ignacio Mulligan MD [Staff Physician] - Two Weeks Home Medications / New Prescriptions: No Action No Home Medications 0 NA DIR #0 info O2 Device: Room Air Diet at Discharge: As Tolerated, Regular, [place] Activity: No Restrictions, No Heavy Lifting Call Office For: Worsening Symptoms, Wound is Draining Pus, Fever over 101 F - DC Summary Notes Hospital Course Note:: Discharge summary on patient named JUNIOR SAMUELS JR admitted to [facility] on 10/01/16 by Marcus Watson MD. Date of discharge is []. 41-year-old gentleman admitted to our facility with GI bleeding. EGD revealed an esophageal ulcer. He is going to discharge home on proton pump inhibitors. He did have some associated pain and a HIDA scan was obtained and found to have normal gallbladder ejection fraction. At this point patient has reached maximal benefit of hospitalization. He is stable for discharge home. Total Time: 45 min - Physical Exam Vital Signs: Last Vital Signs Temp 97.8 F 10/03/16 05:39 Pulse 90 10/03/16 05:39 Resp 18 10/03/16 05:39 BP 131/62 10/03/16 05:39 Pulse Ox 98 10/03/16 05:39 Oxygen Pulse Oxygen Saturation 98 O2 Device Room Air Oxygen Flow Rate 2 Fraction of Inspired Oxygen ( FIO2) Constitutional: Alert Oriented to: Time, Person, Place - HEENT Nose: No Symptoms Reported - Respiratory/Cardiovascular Respiratory: Normal - CTA. negative: Rales, Rhonchi, Wheezes - GI Tenderness: Diffuse, Epigastric (more tender than rest of abdo) Andrew's Sign: Negative - Musculoskeletal Back: Normal Extremities: Normal - Integumentary Skin: Normal - Neurologic Mood Description: Normal Thought: Coherent Perception: Normal - Other Exam Other Exam Findings: NUCLEAR MEDICINE HEPATOBILIARY IMAGING WITH GALLBLADDER EF TECHNIQUE: Sequential images of the abdomen were obtained out to 60 minutes following intravenous administration of radiopharmaceutical. After slow intravenous infusion of 1.36 micrograms Cholecystokinin, gallbladder ejection fraction was determined. RADIOPHARMACEUTICALS: 5.2 mCi Tc-99m Choletec IV COMPARISON: Ultrasound from 10/02/2016 FINDINGS: There is adequate uptake throughout the liver immediately following injection. The gallbladder is visualized at 4 minutes. Small bowel activity is seen at 27 minutes.. Following CCK injection the gallbladder ejection fraction is calculated at 84% IMPRESSION: Normal uptake and excretion of biliary tracer. Normal gallbladder ejection fraction at 84%. Electronically Signed By: Vaibhav Mesa M.D. On: 10/03/2016 10:53 EGD: IMPRESSION: Esophageal ulcer with stigmata of recent hemorrhage. RECOMMENDATION: The patient should remain on high-dose proton pump inhibitors for the time being. Follow up will be needed in the office in about 2 weeks with a followup endoscopy to verify healing of the ulceration in 6-8 weeks. The patient should avoid all NSAIDs.
[2016-10-03 13:39] VITALS: BP 131/62; PULSE 90; TEMP 97.8
[2016-10-04 08:45] LABS: HEPATITIS B SURFACE AB(IMMUNE) Non Reactive (.)
== END 2016-10-03 12:26 | disposition home or self-care (01) | DRG 378 ==
LOC: ED 12:32 → MPS3 19:04
PROVIDERS: ADMIT Internal Medicine; ATTEND Hospitalist
PROC: 0DJ08ZZ Inspection of Upper Intestinal Tract, Via Natural or Artificial Opening Endoscopic (ICD-10-PCS; principal; 2016-10-02)
PROC: 30233N1 Transfusion of Nonautologous Red Blood Cells into Peripheral Vein, Percutaneous Approach (ICD-10-PCS; 2016-10-02)
DX: K92.1 Melena (principal); D62 Acute posthemorrhagic anemia; K22.11 Ulcer of esophagus with bleeding; K70.9 Alcoholic liver disease, unspecified; R63.4 Abnormal weight loss; R74.0 Nonspecific elevation of levels of transaminase and lactic acid dehydrogenase [LDH]; K80.20 Calculus of gallbladder without cholecystitis without obstruction; F17.210 Nicotine dependence, cigarettes, uncomplicated
CPT/HCPCS: 36415; 36430; 43235; 71010; 74177; 76700; 78227; 80053; 80061; 81001; 82550; 82607; 82728; 82746; 83540; 83550; 83690; 83735; 84100; 84439; 84443; 84481; 84484; 85014; 85018; 85025; 85027; 85610; 85730; 86705; 86706; 86708; 86709; 86803; 86850; 86900; 86901; 86920; 93005; 96361; 96365; 96366; 96375; 96376; 99152; 99284; 99406; A9537; A9698; J1200; J1741; J1940; J2250; J2270; J2405; J3010; J3490; J7030; P9016; S0164